=== PATIENT | female | born 1965 | race Caucasian/White ===

== ENCOUNTER 2019-07-19 18:35 | Inpatient (IN) ==
--- NOTE | 2019-07-19 18:53 | PROVIDER DOCUMENTATION ---
HPI-General Adult - General Chief Complaint: Abnormal Lab[s] Stated Complaint: LOW BLOOD COUNT Time Seen by Provider: 07/19/19 18:47 Source: patient Allergies/Adverse Reactions: Patient Allergies Allergy/AdvReac Type Severity Reaction Status Date / Time lisinopril Allergy ANAPHYLAXIS Verified 07/15/19 09:54 Home Medications: Home Medication List Medication Instructions Recorded Confirmed Last Taken Type Allopurinol 100 mg PO DAILY 07/14/19 07/15/19 07/15/19 07:00 History Amlodipine [Norvasc] 2.5 mg PO DAILY 07/14/19 07/15/19 07/15/19 07:00 History Aspirin 81 mg PO DAILY 07/14/19 07/15/19 07/15/19 07:00 History Furosemide 40 mg PO DAILY 07/14/19 07/15/19 07/14/19 History Metoprolol [Lopressor] 50 mg PO BID 07/14/19 07/15/19 07/15/19 07:00 History Quetiapine [Seroquel] 100 mg PO QHS 07/14/19 07/15/19 07/14/19 20:00 History Ranitidine [Zantac] 150 mg PO BID 07/14/19 07/15/19 07/15/19 07:00 History SIMVAstatin [Zocor] 80 mg PO QHS 07/14/19 07/15/19 07/14/19 20:00 History Sertraline [Zoloft] 300 mg PO DAILY 07/14/19 07/15/19 07/15/19 07:00 History Sodium Bicarbonate 2 tab PO BID 07/14/19 07/15/19 07/15/19 07:00 History Hydrocodone/Acetaminophen [[place] 1 ea PO Q6H PRN PRN #30 tab 07/15/19 Unknown Rx 5-325 Tablet] - History of Present Illness -Gen Adult Nature of Presenting Problems: 53 YOF PRESENTS ON THE DIRECTION OF DR. SINGH FOR HGB 6, SHE WAS IN [place] FOR EVALUATION OF RENAL TRANSPLANT. SHE C/O WEAKNESS, ABDOMINAL PAIN SINCE PROCEDURE (HAD PD CATH PLACED LAST WEEK) AND FEELING COLD. DENIES SOB, CP, NAUSEA, VOMITING DIARRHEA. Location of Pain/Injury: reports: abdomen Pain Radiation: reports: no radiation Quality of Pain: reports: aching Severity: reports: moderate Onset/Duration: reports: 1 week ago Timing: reports: still present Context/Activities at Onset: reports: none Modifying Factors: improves with: nothing Similar Symptoms Previously?: No Recently seen or treated by another doctor?: No Review of Systems - Adult - REVIEW OF SYSTEMS - ADULT Constitutional: reports: fever. denies: no symptoms reported, see HPI, chills, fatique, night sweats, weight gain, weight loss, other Eyes: reports: no symptoms reported. denies: see HPI, discharge, dry eyes, decreased vision, blurred vision, double vision, eye pain, redness, other Ears, Nose, Mouth & Throat: reports: no symptoms reported. denies: see HPI, ear discharge, ear pain, hearing loss, tinnitus, epistaxis, sinus problem, nose pain, loose teeth, mouth/dental pain, mouth swelling, hoarseness, throat pain, throat swelling, other Cardiovascular: reports: no symptoms reported. denies: see HPI, chest pain, edema, heart murmur, irregular heart rate, orthopnea, palpitations, poor circulation, PND, syncope, other Respiratory: reports: no symptoms reported. denies: see HPI, chronic cough, cough, dyspnea on exertion, excessive sputum production, hemoptysis, pleurisy, shortness of breath, wheezing, other Gastrointestinal: reports: see HPI, abdominal pain. denies: no symptoms reported, hematemesis, constipation, diarrhea, difficulty swallowing, frequent heartburn, nausea, poor appetite, rectal bleeding, vomiting, other Genitourinary: reports: no symptoms reported. denies: see HPI, dysuria, d ischarge, frequency, flank pain, frequent UTI's, hematuria, hesitency, incontinence, urinary retention, urgency, other Musculoskeletal: reports: see HPI, muscle weakness. denies: no symptoms reported, bone pain, back pain, frequent leg cramps, joint pain, joint swelling, muscle aches, neck pain, other Integumentary: reports: no symptoms reported. denies: see HPI, hives, hair loss, itching, mole changes, nail changes, rash, skin sores/ulcer, skin thickening, other Neurological: reports: no symptoms reported. denies: see HPI, ataxia, dizziness/vertigo, headache/migraines, loss of balance, numbness, paresthesia, seizure, slurred speech, syncope, tremors, other Psychiatric: reports: no symptoms reported. denies: see HPI, anxiety, anti- depressant use, alcohol/drug dependence, depression, emotional problems, insomnia, panic attacks, suicidal thoughts, other Endocrine: reports: no symptoms reported. denies: see HPI, change in skin pigment, excessive sweating, goiter, cold intolerance, heat intolerance, increased hunger, increased thirst, polyuria, other Hematologic/Lymphatic: reports: no symptoms reported. denies: see HPI, blood clots, easy bruising, low blood count, lymphedema, prolonged bleeding, swollen lymph nodes, transfusions, other Allergic/Immunologic: reports: no symptoms reported. denies: see HPI, allergic reactions, allergic rhinitis, asthma, eczema, food allergy, frequent infections, hay fever, hives, positive PPD, urticaria, other Past History - Adult - PAST MEDICAL HISTORY-ADULT Review of Records: reports: Nursing Assessment Review, Social history reviewed & non-contributory. Physical Exam-General - PHYSICAL EXAM-ADULT Initial Vital Signs Reviewed: Yes - CONSTITUTIONAL General Appearance: alert, no apparent distress. negative: appears well - EYES Eyes: PERRL/EOMI, pink conjunctivae - HEAD, EARS, NOSE, MOUTH & THROAT HENMT: normocephalic/atraumatic, moist mucous membranes, normal ENT inspection - NECK Neck: non-tender, full range of motion, supple - RESPIRATORY Respiratory: chest non-tender, lungs clear, normal breath sounds - CARDIOVASCULAR Cardiovascular: normal peripheral pulses, regular rate, rhythm, no edema, no gallop, no JVD, no murmur - GASTROINTESTINAL (ABDOMEN) Abdominal Exam: tenderness, other (PD CATH IN PLACE DRESSING INTACT). negative: non tender - LYMPHATIC Lymphatic: no adenopathy - MUSCULOSKELETAL Back Exam: normal inspection Extremity: normal range of motion, non-tender. negative: normal gait (WEAK) - SKIN Integumentary: normal turgor, warm/dry, jaundice - NEUROLOGIC Neurologic: grossly normal - PSYCHIATRIC Psych/Mental Status: normal mood/affect, oriented x 3 Progress - PLAN OF CARE/RESULTS Progress/Plan/Lab Results: Vital Signs - 8 hr 07/19/19 18:39 Temperature 100.2 F H Pulse Rate 95 H Respiratory Rate 16 Blood Pressure 149/91 O2 Sat by Pulse Oximetry 100 Orders Category Date Time Status Cardiac Monitoring DIRECTED Care 07/19/19 18:49 Ordered IV Insertion ORDERED Care 07/19/19 18:[address] ABDOMEN/PELVIS W/O CONTRAST [CT] Stat Exams 07/19/19 18:47 Ordered BLOOD CULTURE [BLDCUL] Stat Lab 07/19/19 18:49 Uncollected CBC WITH ELECTRONIC DIFF [HEME] Stat Lab 07/19/19 18:47 Uncollected COMPREHENSIVE METABOLIC PANEL [CHEM] Stat Lab 07/19/19 18:47 Uncollected LACTATE, PLASMA [CHEM] Q3H Lab 07/19/19 19:00 Uncollected LACTATE, PLASMA [CHEM] Q3H Lab 07/19/19 22:00 Uncollected LACTATE, PLASMA [CHEM] Q3H Lab 07/20/19 01:00 Uncollected MAGNESIUM [CHEM] Stat Lab 07/19/19 18:49 Uncollected PROTIME WITH INR [COAG] Stat Lab 07/19/19 18:47 Uncollected PTT [COAG] Stat Lab 07/19/19 18:47 Uncollected TYPE & SCREEN [BBK] Stat Lab 07/19/19 18:47 Uncollected URINALYSIS W/POSS RFLX CULT [URINALYSIS] Stat Lab 07/19/19 18:49 Uncollected Oxygen Device Stat Oth 07/19/19 18:49 Ordered Result Diagrams: 07/19/19 19:43 07/19/19 19:43 - CT/MRI 1 CT Study: Abdomen, Pelvis Impression: See EMR Report (EXAM: CT ABDOMEN/PELVIS W/O CONTRAST - 07/19/2019 HISTORY: LOW h h RECENT ABDOMINAL PROCEDURE TECHNIQUE: CT abdomen/pelvis without contrast. No contrast administered per request of the referring provider, apparently due to chronic renal failure. COMPARISON: None. FINDINGS: The visualized lung bases appear clear except for mild dependent atelectasis. There is a peritoneal dialysis catheter with its distal end coiled at the left anterior upper pelvis. There is no discrete abdominal wall hematoma identified. There is no hemoperitoneum or free fluid identified. The right colon is tortuous. There is no evidence of bowel obstruction. There is no abnormal bowel wall thickening identified. There is a moderate amount retained fecal debris in the colon. There is no free air or abscess identified. There are no substantial abnormalities of the liver, spleen, or pancreas identified. There is nonspecific mild fullness of the bilateral adrenal glands. The gallbladder surgically absent. There is no renal stone or hydronephrosis identified. There is no perinephric hematoma identified. There are no substantial enlarged lymph nodes identified. There are atherosclerotic calcifications noted. There are some lower lumbar spine degenerative changes noted. IMPRESSION: Peritoneal dialysis catheter with its distal end coiled at the left anterior upper pelvis. Evidence of constipation. No other visible acute abnormality in the abdomen or pelvis. This exam was performed using automated exposure control, adjustment of mA or kV according to patient size, and/or use of iterative reconstruction technique. Electronically signed by Ifeanyi Maciel 07/19/2019 8:40 PM 07/19/192039 Interpreting Physician: Ifeanyi Maciel MD Dictated Date/Time: 07/19/192031 cc: Alexa Contreras; David Singh MD) - CONSULTS/PCP/HOSPITALIST Notification #1 *Consult/PCP/Hospitalist*: DR SALVADOR Time Discussed: 21:43 Consult Disposition: Admit Departure - Departure Date of Disposition Decision: 07/19/19 Time of Disposition Decision: 21:43 DIAGNOSIS: Anemia, ESRD (end stage renal disease) Disposition: HOME 01 Certified Medical Emergency: Emergent Condition: Fair Referrals and Follow-Ups: David Singh MD [Primary Care Provider] - - Critical Care Note This patient required my direct & personal management of CC.: No Attestation - Physician/ TSERING Attestation Patient care was provided by Advanced Practice Provider:: Yes Advanced Practice Provider:: Alexa Contreras Advanced Practice Provider documentation review:: The Mid-level provider documentation, treatment plan and medical decision making was reviewed by the physician who agrees with all treatment and medical decision making by the P. The physician spent face to face time with patient:: No Advanced Practice Provider documentation review:: Supervising physician onsite and consulted in the evaluation and care of this patient. The physician did not have a face to face encounter with the patient.
--- NOTE | 2019-07-19 20:42 | Diag Imaging Result Doc PS360 ---
EXAM: CT ABDOMEN/PELVIS W/O CONTRAST - 07/19/2019 HISTORY: LOW h h RECENT ABDOMINAL PROCEDURE TECHNIQUE: CT abdomen/pelvis without contrast. No contrast administered per request of the referring provider, apparently due to chronic renal failure. COMPARISON: None. FINDINGS: The visualized lung bases appear clear except for mild dependent atelectasis. There is a peritoneal dialysis catheter with its distal end coiled at the left anterior upper pelvis. There is no discrete abdominal wall hematoma identified. There is no hemoperitoneum or free fluid identified. The right colon is tortuous. There is no evidence of bowel obstruction. There is no abnormal bowel wall thickening identified. There is a moderate amount retained fecal debris in the colon. There is no free air or abscess identified. There are no substantial abnormalities of the liver, spleen, or pancreas identified. There is nonspecific mild fullness of the bilateral adrenal glands. The gallbladder surgically absent. There is no renal stone or hydronephrosis identified. There is no perinephric hematoma identified. There are no substantial enlarged lymph nodes identified. There are atherosclerotic calcifications noted. There are some lower lumbar spine degenerative changes noted. IMPRESSION: Peritoneal dialysis catheter with its distal end coiled at the left anterior upper pelvis. Evidence of constipation. No other visible acute abnormality in the abdomen or pelvis. This exam was performed using automated exposure control, adjustment of mA or kV according to patient size, and/or use of iterative reconstruction technique. Electronically signed by Ifeanyi Maciel 07/19/2019 8:40 PM
[2019-07-19 20:44] LABS: INR 1.23; PROTIME 15.7 Seconds (11.0-16.0); PTT 40.5 Seconds (22.3-41.8)
[2019-07-19 21:00] LABS: AGAP 26; ALB/GLOB RATIO 1.2; ALBUMIN 3.7 g/dL (3.5-5.0); ALKALINE PHOSPHATASE 84 U/L (32-104); BUN 124 mg/dL (8-22); CALCIUM 7.8 mg/dL (8.8-10.2); CHLORIDE 102 mmol/L (98-107); COSMO 320; CREATININE 9.7 mg/dL (0.5-0.9); ESTIMATED GFR 4; GLUCOSE 151 mg/dL (70-104); GOT 25 U/L (10-30); MAGNESIUM 2.1 mg/dL (1.5-2.7); POTASSIUM 3.5 mmol/L (3.5-5.1); SODIUM 139 mmol/L (136-145); TCO2 11 mmol/L (25-35); TOTAL BILIRUBIN 0.19 mg/dL (0.20-1.00); TOTAL PROTEIN 6.7 g/dL (6.3-8.3)
[2019-07-19] MEDS ORDERED: NORCO-5 PO ONE (21:00)
[2019-07-19 21:07] LABS: BASO# 0.06 X1000 (0.0-0.2); BASO% 0.3 % (0.0-0.8); EOS# 0.45 X1000 (0.0-0.7); EOS% 2.5 % (0.0-10.0); HEMATOCRIT 20.4 % (37.0-47.0); HEMOGLOBIN 6.7 g/dL (12.0-16.0); IMM GRAN% 0.6 % (0.0-0.5); LYMPH# 2.42 X1000 (1.2-3.4); LYMPH% 13.4 % (20.5-51.1); MCH 31.3 PG (27-31); MCHC 32.8 g/dL (33-37); MCV 95.3 FL (81-99); MONO# 2.06 X1000 (0.11-0.59); MONO% 11.4 % (1.7-9.3); MPV 11.4 FL (7.4-10.4); NEUT# 12.96 X1000 (1.4-6.5); NEUT% 71.8 % (42.2-75.2); PLT 352 X1000 (130-400); RBC 2.14 XMIL (4.2-5.4); RDW 13.5 % (11.5-14.5); WBC 18.05 X1000 (4.8-10.8)
[2019-07-19 21:21] LABS: GPT < 5 U/L (10-36)
[2019-07-19] MEDS ORDERED: ZANTAC PO ONE (21:26)
[2019-07-19] MEDS ORDERED: TUMS EXTRA STRENGTH PO ONE (21:50)
[2019-07-19] MEDS ORDERED: ZEGERID 20 MG PO ONE (22:50)
[2019-07-19] MEDS ORDERED: LACTULOSE PO ONE (22:57)
[2019-07-19] MEDS ORDERED: DULCOLAX PR ONE (22:58)
[2019-07-19 23:07] LABS: RETIC% 2.33 % (0.8-2.1); RETIC-HE 27.6 PG (28.2-36.6)
[2019-07-19 23:51] LABS: FERRITIN 266 ng/mL (13-150)
[2019-07-19] MEDS ORDERED: SODIUM BICARBONATE PO ONE (23:53)
[2019-07-19] MEDS ORDERED: PRILOSEC PO ONE (23:53)
--- NOTE | 2019-07-19 23:57 | HISTORY AND PHYSICAL ---
PHYSICIANS: Dr. Cantrell and MEEK Vizcarra. REASON FOR ADMISSION: Low blood count and weakness for the last 1 month. HISTORY OF PRESENT ILLNESS: Mr. Vera Beaver is a 53-year-old, woman, with past medical history of hypertension, gout, hyperlipidemia, CAD, who complains for the last 1 month of feeling very weak, and over the last couple of weeks, having additional postural lightheadedness, along with the weakness. Prior to 2 weeks ago, she had unrestricted exercise tolerance, but over the last 1 week, she reports that she can barely go 20 feet or even go up a flight of stairs. She denies any PND, orthopnea, per se. She also has occasional cough. She came in today because Dr. Cantrell was notified by a lab in [place], where she went to seek kidney donor transplant incompatibility, about her hemoglobin and hematocrit being [address] Cantrell then referred her to the ER to be admitted for transfusion and possible hemodialysis. Less than a week ago, the patient had a peritoneal catheter placed because she opted for peritoneal dialysis, but she reports she has been having diffuse abdominal pain since then, and her weakness has even worsened since then. She denies any bleeding from any orifice or any dark stools. She vomited and had low- grade fever and chills earlier today prior to going to [place]. No cough. No dysuria. No arthralgia or rash. No change in her urinary output. No joint pains. REVIEW OF SYSTEMS: A 12-system review was done. Positive findings per HPI. ALLERGIES: Lisinopril. HOME MEDICATIONS: Not reconciled at this time. I did notice she was taking aspirin, high-dose Zocor, and high-dose Zoloft, but these are not officially confirmed. FAMILY HISTORY: Negative for any diabetes, kidney disease, or heart disease. SOCIAL HISTORY: Smokes half a pack a day. Lives with her daughter. No alcohol use or drug use. SURGICAL HISTORY: Cholecystectomy, hysterectomy, peritoneal catheter placement. LABORATORY AND DIAGNOSTIC DATA: Her lab work is notable for white count 18,000, hemoglobin and hematocrit of 6 and 20, platelets of 352,000, neutrophil count 71%. Potassium is 3.5, BUN is 124, creatinine is 9.7, glucose 151, calcium 7.8, albumin is 3.7. PT and PTT are normal. CT of the abdomen was done and showed peritoneal dialysis with distal end coiled in the left upper quadrant and evidence of constipation was noted. PHYSICAL EXAMINATION: GENERAL: Chronically ill, pallid, obese woman, who is alert and oriented to person, place, and time, with somewhat sad affect and depressed mood. HEENT: Head is normocephalic, atraumatic. Eyes, PERRL, EOMI. She is anicteric and pale. ENT and oropharynx exam shows patient to have very smooth tongue, but no oropharyngeal exudates or erythema. No signs of cyanosis. NECK: Short and thick. No JVD or carotid bruit. No thyromegaly. CHEST: Clear when auscultated in both lung skelton with decreased entry in the bases. CARDIOVASCULAR: First and second heart sounds heard. No gallops, murmurs, rubs. Rhythm is regular. ABDOMEN: She has a peritoneal catheter site which is not erythematous. The patient diffuse tenderness even with light palpation, but no abdominal rigidity. Bowel sounds are hyperactive. I could not appreciate any mass or organomegaly during light palpation, and I could not do deep palpation because the patient was severely tender. RECTAL: Exam deferred at this time. EXTREMITIES: Patient has good distal pulse volumes that are regular and symmetrical. No clubbing or peripheral cyanosis. No edema. NEUROLOGICAL: No gross focal deficits. SKIN: Grossly normal. No rash, lesions, or erythema. MUSCULOSKELETAL: Grossly normal. ASSESSMENT/PLAN: 1. Profound anemia. Etiology yet to be determined. Anemia workup was ordered and stool studies will be also ordered. It is possible that this could be secondary to bone marrow suppression secondary to hematinic deficiency. Please follow anemia workup. Patient will be transfused 1 unit of packed blood cells. 2. End-stage kidney disease. Patient will scheduled for hemodialysis since port at this point in time is not available for use. 3. Leukocytosis. Etiology yet to be determined. Await urinalysis. As possible peritoneal aspirate can be done, I will defer to Dr. Cantrell regarding this. In the interim, will start patient on Zosyn. 4. Hypertension. Continue antihypertensives once medications reconciled. 5. Hyperlipidemia. Suggest modifying dose of Zocor since 80 mg is excessive for someone in end- stage renal disease. It might increase her risk of steroid-induced myopathy. 6. Coronary artery disease. Continue with statins, but also continue with PPIs and H2 blockers. 7. Chronic constipation. Probably secondary to end-stage kidney disease. Will start patient on laxatives, which may or may not help patient's abdominal discomfort. 8. Gout. Currently stable. Would recommend uric acid levels followed. 9. Dyspepsia. If the patient's old medication reconciliation list is correct, I did notice that the patient was on 200 mg of Zoloft and is also taking aspirin. These 2 may increase the patient's potential risk for occult GI bleeding. Await fecal Hemoccult studies. Due to history of CAD and [place], I will continue with aspirin, I will strongly recommend holding Zoloft or at least cutting the dose down to a safer dose, being that there really is no benefit of increasing the dose of Zoloft to greater than 150 mg, and this exposes the patient to a higher risk of potential bleeding disorders. cc: MD David De La Cruz MD Brittany Walker, CRNP MTDD
[2019-07-20] MEDS ORDERED: NS 1,000 ML ONE (00:36)
[2019-07-20] MEDS ORDERED: TYLENOL PO PRN (01:34)
[2019-07-20] MEDS ORDERED: ZOFRAN IV PRN (01:34)
[2019-07-20] MEDS: ZOSYN 2.25 GM in NS 50 ML IV SCH ×4 (03:10→22:56)
[2019-07-20] MEDS ORDERED: NS 2,000 ML MISC PRN (06:28)
[2019-07-20] MEDS ORDERED: HEPARIN IV PRN (06:28)
[2019-07-20] MEDS ORDERED: TIGHT: 0.2 ML/HR FOR DIALYSIS MISC PRN (06:28)
[2019-07-20 06:43] LABS: BASO# 0.04 X1000 (0.0-0.2); BASO% 0.3 % (0.0-0.8); EOS# 0.34 X1000 (0.0-0.7); EOS% 2.2 % (0.0-10.0); HEMATOCRIT 23.4 % (37.0-47.0); HEMOGLOBIN 7.4 g/dL (12.0-16.0); IMM GRAN% 0.6 % (0.0-0.5); LYMPH# 2.66 X1000 (1.2-3.4); MCH 29.7 PG (27-31); MCHC 31.6 g/dL (33-37); MONO# 1.87 X1000 (0.11-0.59); MONO% 11.9 % (1.7-9.3); MPV 11.2 FL (7.4-10.4); NEUT# 10.66 X1000 (1.4-6.5); PLT 347 X1000 (130-400); RBC 2.49 XMIL (4.2-5.4); RDW 13.8 % (11.5-14.5); WBC 15.67 X1000 (4.8-10.8)
--- NOTE | 2019-07-20 06:53 | GENERAL SURGERY CONSULTATION ---
DATE: 07/20/2019 REQUESTING PHYSICIAN: Dr. Cantrell. REASON FOR CONSULTATION: Placement of a tunneled hemodialysis catheter. HISTORY OF PRESENT ILLNESS: A 53-year-old female with a past medical history of hypertension, gout, hyperlipidemia, and coronary artery disease, who has been followed for chronic kidney disease and end-stage renal disease. I had previously in the last week placed the peritoneal dialysis catheter for her, but apparently her need for dialysis has expedited. She has come in to be admitted for low blood count and weakness for a month. I had an extensive discussion with Dr. Cantrell about placement of a tunneled hemodialysis catheter, and that is the main reason why I have been consulted. Otherwise, the patient is doing okay. She has no major complaints at this time. PAST MEDICAL HISTORY: Hypertension, gout, hyperlipidemia, coronary artery disease, and end-stage renal disease. PAST SURGICAL HISTORY: Includes recent peritoneal dialysis catheter placement, cholecystectomy, and hysterectomy. ALLERGIES: Lisinopril. HOME MEDICATIONS: Currently being reconciled in the MAR are reviewed. She is on Zosyn. FAMILY HISTORY: Reviewed with patient, but noncontributory to this case. SOCIAL HISTORY: Current smoker. REVIEW OF SYSTEMS: Full 14 systems reviewed and negative except as though specified in HPI. PHYSICAL EXAMINATION: Vital Signs: The patient is currently afebrile. Her vital signs are stable. General: No acute distress. female looks stated age. HEENT: Normocephalic, atraumatic. Pupils equal, round, and reactive to light. Mucous membranes moist. Oropharynx benign. Neck: Supple. Trachea midline. Cardiovascular: Regular rate and rhythm. Lungs: Grossly clear. Abdomen: Soft. Peritoneal dialysis catheter in place with appropriate tenderness. No real signs of peritonitis. Extremities: Moves all extremities. Neurologic: Grossly intact. Skin: No signs of jaundice. Vascular: All extremities perfused. LABORATORY: Reviewed. IMAGING: Including CT scan reviewed. ASSESSMENT AND PLAN: A 53-year-old female with end-stage renal disease. End-stage renal disease. At this time, we placed a peritoneal dialysis catheter and is not quite ready for usage. We will plan on placement of a hemodialysis catheter for right now so that she can get over the period where she can use the peritoneal dialysis catheter. We will plan on placing that today. Discussed with her the risks, benefits, and alternatives. Risks including, but not limited to bleeding, infection, risk of anesthesia, and risk of pneumothorax. We will get her on the OR schedule today. I appreciate the consult. cc: Jarrod German MD
[2019-07-20 07:06] LABS: CALCIUM 7.5 mg/dL (8.8-10.2); CREATININE 9.5 mg/dL (0.5-0.9); POTASSIUM 3.1 mmol/L (3.5-5.1)
[2019-07-20] MEDS ORDERED: EPOGEN SUBQ ONE (10:09)
[2019-07-20] MEDS ORDERED: DIPRIVAN 1% ONE (11:27)
[2019-07-20] MEDS ORDERED: XYLOCAINE-MPF 2% ONE (11:27)
[2019-07-20] MEDS ORDERED: XYLOCAINE-MPF 1% ONE (11:42)
[2019-07-20] MEDS ORDERED: NS 250 ML ONE (11:42)
[2019-07-20] MEDS ORDERED: SENSORCAINE 0.25%/EPI 1:200,000 ONE (11:42)
--- NOTE | 2019-07-20 11:53 | NEPHROLOGY CONSULTATION ---
DATE: 07/20/2019 REASON FOR ADMISSION: Anemia, leukocytosis. REASON FOR CONSULTATION: Acute on chronic kidney disease. HISTORY OF PRESENT ILLNESS: This is a 53-year-old female known to our service for CKD, stage 5, who, about a week ago, had a peritoneal dialysis catheter placed. On the day of admission she had presented to the clinic in [place] in preparation of transplant evaluation. We were contacted regarding profound anemia and worsening renal function. We had the patient directly admitted to the hospital. We planned on having Surgery place a tunnel catheter so that we could dialyze her with hemodialysis until we can transition over to peritoneal dialysis. This morning she continues to feel weak. She states that in the last week her activity level has plummeted. She denies nausea or vomiting prior, however, yesterday just prior to going to [place] she did have an episode of vomiting and a low-grade fever. She has been brought into the hospital for further workup and treatment. Her initial labs indicated a hemoglobin of 6.7 and a WBC of 18.0. Creatinine on admission was 9.7. Potassium was 3.5. We have been asked to see her and assist in her management. PAST MEDICAL HISTORY: CKD 5, with plans to initiate peritoneal dialysis. Hyperlipidemia. Hypertension. Gout. Pulmonary artery disease. Acidosis. GERD. Edema. Anxiety. Depression. PAST SURGICAL HISTORY: She just went under peritoneal dialysis catheter placement. She has had a cholecystectomy and hysterectomy previously. ALLERGIES: Lisinopril. MEDICATIONS: Home medications are listed as Norvasc, aspirin, Lopressor, Seroquel, Zantac, Zocor, sodium bicarbonate, furosemide, Zoloft, and [place]. FAMILY HISTORY: Negative. SOCIAL HISTORY: Continues to smoke. No ETOH or illicit drug use. REVIEW OF SYSTEMS: Weakness. Shortness of breath. Vomiting. Low-grade fever. PHYSICAL EXAMINATION: Vital Signs: Temperature 98.5, pulse 93, respiratory rate 15, blood pressure 127/66. Intake 700 mL. Output not measured. General: This is a middle-aged female resting in bed. She does not appear in acute distress. HEENT: Normocephalic and atraumatic. Conjunctivae are pale. Oral mucosa is moist. Neck: Supple, without JVD. Cardiovascular: Regular rate and rhythm. Lungs: Clear bilaterally. Abdomen: Soft. Skin: She has some trace bruising to her PD catheter site. : Voiding. Extremities: No clubbing, cyanosis or edema. Integumentary: Skin warm, dry, pale Neurologic: Grossly nonfocal. DIAGNOSTIC DATA: Sodium 142, potassium 3.1, CO2 12, BUN 122, creatinine 7.5. Calcium 7.5. WBC of 15.6, hemoglobin 7.4, platelets 347,000. CT of the abdomen and pelvis, constipation, no other abnormality noted. ASSESSMENT AND PLAN: 1. Chronic kidney disease, 5, with plans to initiate peritoneal dialysis. Unfortunately the patient's renal function has worsened. We will have Surgery consult for a tunnel dialysis catheter. We will initiate hemodialysis until the patient can recover from this and then we will transition back over to peritoneal dialysis. 2. Profound anemia. The patient did receive 1 unit of packed red blood cells. We will try to avoid additional transfusions unless absolutely necessary. The patient is in the process of being worked up for renal transplant. 3. Hypertension. Continue home medications. 4. Leukocytosis. The patient is on Zosyn, continue. Dictated by MEEK Calix for David Cantrell MD Face to face encounter, data reviewed, discussed with Dipesh Frank on 07/20/19. I agree with the above assessment and plan of care. cc: David Cantrell MD [facility]
[2019-07-20] MEDS ORDERED: KETAMINE ONE (11:58)
[2019-07-20] MEDS ORDERED: DECADRON ONE (11:59)
[2019-07-20] MEDS ORDERED: TORADOL ONE (11:59)
[2019-07-20 12:09] LABS: URINE SOURCE CLEAN CATCH
[2019-07-20 12:11] LABS: BILIRUBIN URINE NEGATIVE (NEGATIVE); BLOOD URINE SMALL (NEGATIVE); COLOR YELLOW; GLUCOSE URINE NEGATIVE (NEGATIVE); KETONE URINE NEGATIVE (NEGATIVE); LEUKOCYTES URINE SMALL (NEGATIVE); NITRITE URINE NEGATIVE (NEGATIVE); PH URINE 5.5; PROTEIN URINE 50 mg/dL (NEGATIVE); SP GRAVITY URINE 1.012; TURBIDITY URINE CLEAR (CLEAR); UROBILINOGEN URINE NORMAL (NORMAL)
--- NOTE | 2019-07-20 12:44 | Diag Imaging Result Doc PS360 ---
EXAM: CHEST-PORTABLE 07/20/2019 HISTORY: post op TECHNIQUE: AP portable at 1237 COMMENT: There is a double-lumen internal jugular catheter on the right with its tip in the superior vena cava. There is no evidence of pneumothorax or pleural fluid collection. There is some questionable atelectasis in the lingula otherwise the lungs appear to be clear. There are no previous studies. IMPRESSION: Questionable lingular subsegmental atelectasis. Electronically signed by Rafi Herrera 07/20/2019 12:42 PM
[2019-07-20 12:47] LABS: UR EPITHELIAL CELLS <10 /HPF (<10); URINE BACTERIA NEGATIVE /HPF; URINE RBC <10 /HPF (<10); URINE WBC 20-40 /HPF (<10); URINE YEAST NONE SEEN
[2019-07-20] MEDS ORDERED: ULTRAM PO PRN (13:25)
--- NOTE | 2019-07-20 13:25 | OPERATIVE NOTE ---
PROCEDURE DATE: 07/20/2019 PREOPERATIVE DIAGNOSIS: End-stage renal disease. POSTOPERATIVE DIAGNOSIS: End-stage renal disease. PROCEDURE: Ultrasound of fluoroscopic-guided right internal jugular vein tunneled hemodialysis catheter. SURGEON: Jarrod German MD. DRILL OPERATOR: None. ANESTHESIA: General endotracheal. INTRAOPERATIVE FINDINGS: Ultrasound showed good caliber right internal jugular vein. Fluoroscopy showed the catheter in good position. COMPLICATIONS: None at time of dictation. ESTIMATED BLOOD LOSS: 3 mL. SPECIMENS REMOVED: None. BRIEF HISTORY: A 53-year-old female who has end-stage renal disease. She had a PD catheter placed, but it is not able to be used yet and she needed dialysis. The risks, benefits, and alternatives for placement of catheter replaced. All questions answered. DESCRIPTION OF PROCEDURE: After informed consent was obtained, the patient was brought to the operative theater, transferred to the operative table, placed in the supine position, and general endotracheal anesthesia was then performed without complication. A formal time-out was then performed confirming patient, date, and procedure. All were in agreement. At that time, attention was turned to the right neck. Using the ultrasound, we identified the right internal jugular vein. Under local anesthetic I was able to cannulate the right internal jugular vein, passed a wire, seen going to the superior vena cava. We then created a pocket on the right chest wall, tunneled the catheter from the right chest wall to the right neck, exchanged the wire, placed the tip of the catheter in the superior vena cava. All ports were aspirated and flushed easily. We secured to the skin in a standard fashion, and placed a sterile dressing. The patient tolerated the procedure well. cc: Jarrod German MD
[2019-07-20] MEDS: VENOFER 200 MG in NS 150 ML IV SCH (17:17)
[2019-07-20] MEDS: NORCO-5 PO PRN ×2 (18:50→22:53)
[2019-07-20] MEDS ORDERED: MOTRIN PO ONE (22:42)
[2019-07-20] MEDS ORDERED: SEROQUEL PO SCH (22:45)
[2019-07-21] MEDS: ZOSYN 2.25 GM in NS 50 ML IV SCH ×3 (03:22→17:52)
[2019-07-21] MEDS ORDERED: NS 2,000 ML MISC PRN (06:17)
[2019-07-21] MEDS ORDERED: TIGHT: 0.2 ML/HR FOR DIALYSIS MISC PRN (06:17)
[2019-07-21] MEDS ORDERED: HEPARIN IV PRN (06:17)
[2019-07-21] MEDS: NORCO-5 PO PRN ×3 (07:51→17:37)
--- NOTE | 2019-07-21 09:40 | PROGRESS NOTE ---
DATE: 07/21/2019 SUBJECTIVE: She feels much better, got some rest last night, breathing comfortably. No pain. OBJECTIVE: Vital Signs: Temp 98.6 degrees, pulse 92, respirations 16, blood pressure 97/58. HEENT: Pupils are equal and round. Lungs: Clear in all lung skelton. Cardiovascular: Regular rhythm and rate without murmur or S3. Abdomen: Soft. Skin: Warm and dry. Urine output 2700. She has had a tunneled catheter placement and dialysis yesterday. ASSESSMENT AND PLAN: 1. Chronic kidney disease stage 5. Plan is to initiate peritoneal dialysis. Unfortunately, the patient's renal function worsened, so she has a tunneled catheter in. We are going to continue to pursue hemodialysis, with plans to transition back over to peritoneal dialysis when she is able. 2. Profound anemia. Given 1 unit of packed red blood cells. Given iron infusions. 3. Hypertension. 4. Leukocytosis. Will recheck CBC and electrolytes, and probably need to do that this morning. cc: Ryan Benítez MD
--- NOTE | 2019-07-21 09:44 | PROGRESS NOTE ---
DATE: 07/20/2019 SUBJECTIVE: She presented on 07/19/2019 with anemia, leukocytosis, acute on chronic kidney disease, a 53-year-old with stage V chronic kidney disease. About a week ago, had peritoneal dialysis catheter placed. On the day of admission, she had presented to the clinic in [place] in preparation for transplant evaluation. Dr. Cantrell contacted. Had profound anemia, worsening renal function. The patient directly admitted to the hospital. Plan was to put in a tunneled catheter, which they did, and they did dialysis as well. PAST MEDICAL HISTORY: Chronic kidney disease stage V. Plan is to initiate peritoneal dialysis. Hyperlipidemia, hypertension, gout, pulmonary artery disease, acidosis, gastroesophageal reflux disease, edema, anxiety, depression. PAST SURGICAL HISTORY: Peritoneal dialysis catheter placement, had a cholecystectomy and hysterectomy previously. OBJECTIVE: General: She is pretty wore out and tired, but not in any pain, breathing comfortably. Vital Signs: Temperature 98.1 degrees, pulse 93, respirations 15, blood pressure 98/59. Eyes: Pupils are equal and round. Lungs: Clear in all lung skel[place]. Cardiovascular exam: Regular rhythm and rate without murmur or S3. Abdomen: Soft. Skin: Warm and dry. : Urine output was 2800. IMAGING: Chest x-ray: Questionable lingular subsegmental atelectasis. ASSESSMENT AND PLAN: 1. Chronic kidney disease stage V. Plan was to initiate peritoneal dialysis. Unfortunately, the patient's renal function has worsened, so a tunneled dialysis catheter was placed and initiated hemodialysis, then can transition back to peritoneal dialysis. 2. Profound anemia. Gave 1 unit of packed red blood cells, and we will continue to follow. 3. Hypertension. 4. Leukocytosis. PRESENT ORDERS: She is on Seroquel 300 mg at bedtime, Tylenol 650 mg q. 6 hours p.r.n., hydrocodone 5 mg q. 4 hours p.r.n., Ultram 50 mg q. 6 hours p.r.n. Iron sucrose was given to her 200 mg IV daily, Zosyn 2.25 g IV q. 6 hours, Epogen 10,000 units subcutaneous (I suspect that is going to be maybe Mondays, Wednesdays, and Fridays). Review of her home medicines: Continue her amlodipine. Continue her aspirin. She is already on the hydrocodone. She will continue the metoprolol 50 mg b.i.d. the ranitidine 150 mg b.i.d., sodium bicarbonate 650 mg b.i.d., allopurinol 100 mg daily, furosemide she was taking 20 mg a day; we are going to hold that, sertraline decided to hold, the Zocor we are holding for now, and quetiapine was continued 100 mg at bedtime. cc: Ryan Benítez MD
[2019-07-21 10:04] LABS: BASO# 0.03 X1000 (0.0-0.2); BASO% 0.2 % (0.0-0.8); EOS# 0.14 X1000 (0.0-0.7); EOS% 0.9 % (0.0-10.0); HEMATOCRIT 21.8 % (37.0-47.0); HEMOGLOBIN 7.1 g/dL (12.0-16.0); IMM GRAN# 0.15 X1000 (0.0-0.04); LYMPH# 2.72 X1000 (1.2-3.4); LYMPH% 17.6 % (20.5-51.1); MCH 30.7 PG (27-31); MCHC 32.6 g/dL (33-37); MCV 94.4 FL (81-99); MONO# 2.06 X1000 (0.11-0.59); MONO% 13.4 % (1.7-9.3); MPV 10.5 FL (7.4-10.4); NEUT# 10.33 X1000 (1.4-6.5); NEUT% 66.9 % (42.2-75.2); PLT 315 X1000 (130-400); RBC 2.31 XMIL (4.2-5.4); RDW 14.5 % (11.5-14.5); WBC 15.43 X1000 (4.8-10.8)
[2019-07-21 10:53] LABS: CREATININE 4.5 mg/dL (0.5-0.9); POTASSIUM 3.1 mmol/L (3.5-5.1)
--- NOTE | 2019-07-21 12:05 | NEPHROLOGY PROGRESS NOTE ---
DATE: 07/21/2019 SUBJECTIVE: She states that she had no real problems with dialysis yesterday. No chest pains or palpitations. Some headache. OBJECTIVE: Vital Signs: Blood pressure 97/58, heart rate 92, respirations 16, afebrile. General: No acute distress. Skin is warm and dry. Conjunctivae are pink. Neck: Neck veins are not distended. Heart: Regular. No gallops. Lungs: Equal. No crackles or wheezes. Abdomen: Soft, nontender. Bowel sounds present. Extremities: No edema, clubbing, or cyanosis. IMPRESSION: 1. Chronic kidney disease 5D. She will have dialysis again today. From my perspective, she can be discharged after treatment if she tolerates it well. 2. Anemia. Hemoglobin 7.4. She received a single dose of OSIRIS. She is receiving intravenous Venofer and this can be completed as an outpatient. cc: David Cantrell MD
[2019-07-21 12:49] LABS: HEPATITIS PROFILE ACUTE SEE COMMENTS
[2019-07-21] MEDS: VENOFER 200 MG in NS 150 ML IV SCH (13:57)
[2019-07-21 17:21] VITALS: BP 105/61
--- NOTE | 2019-07-21 17:58 | DISCHARGE SUMMARY ---
ADMISSION DATE: 07/19/2019 DISCHARGE DATE: 07/21/[address] David Cantrell and MEEK Vizcarra. HISTORY AND HOSPITAL COURSE: This is a 53-year-old female with a past medical history hypertension, gout, hyperlipidemia, coronary artery disease, who had complaints for 1 month of feeling very weak. Over a couple of weeks has had additional postural lightheadedness along with weakness. Prior 2 weeks ago unrestricted exercise tolerance, but over the last week she reports she can barely go 20 feet. She denies any paroxysmal nocturnal dyspnea or orthopnea. Also occasional cough. Seen by Dr. Cantrell. Notified by the lab in [place] that she went to seek a kidney donor transplant, incompatibility. He saw her about her hemoglobin and hematocrit being 6 and 20 respectively. He referred to the emergency room. Had a transfusion, possible hemodialysis. Less than a week ago the patient had a peritoneal catheter placed because she opted for peritoneal dialysis. Reports having diffuse abdominal pain since then. Her weakness has worsened. She is not bleeding from any orifice and no dark stools. Has had vomiting and low- grade fever and chills early in the day, so was admitted. Admission diagnosis was profound anemia. Gave her a unit of blood and have given her some iron. Because end-stage renal disease, scheduled for hemodialysis and she had a tunneled catheter placed and 2 dialysis treatments which she tolerated well. No further nausea. Blood pressure well controlled. She wanted to go home, so we will set her up to go home today. DISCHARGE MEDICATIONS: She will be on Zyloprim 100 mg daily, Norvasc 2.5 mg daily, aspirin 81 mg a day. She has some [place] 5 q.4 hours p.r.n. for pain, Lopressor 50 mg b.i.d. She received some Zosyn while she was here. Seroquel 300 mg at bedtime, Zantac 150 mg b.i.d., and she has tramadol 50 mg q.6 hours. cc: Ryan Benítez MD
[2019-07-21] MEDS ORDERED: LOPRESSOR PO SCH (21:00)
[2019-07-21] MEDS ORDERED: ZANTAC PO SCH (21:00)
[2019-07-21] MEDS ORDERED: SODIUM BICARBONATE PO SCH (21:00)
[2019-07-22] MEDS ORDERED: ZYLOPRIM PO SCH (09:00)
[2019-07-22] MEDS ORDERED: NORVASC PO SCH (09:00)
[2019-07-22] MEDS ORDERED: ASPIRIN PO SCH (09:00)
== END 2019-07-21 18:26 | disposition home or self-care (01) | DRG 673 ==
LOC: ED 18:35 → 1N 23:32 → SUATTDRO 23:32
PROVIDERS: ATTEND Emergency Medicine